=== PATIENT | male | born 1955 | race Caucasian/White ===

== ENCOUNTER 2017-09-22 07:03 | Day surgery (SDC) | payer BC ==
[2017-09-15 08:26] VITALS: BMI 31.6
[2017-09-22] MEDS ORDERED: Propofol 10 mg/ml Inj (20 ML) ONE ×2 (07:58→08:35)
[2017-09-22] MEDS ORDERED: Sodium Chloride 0.9% 1,000 ML IV SCH (08:15)
[2017-09-22 10:08] VITALS: BP 151/76; PULSE 56; RESP 15; TEMP 97; O2SAT 97
== END 2017-09-22 10:35 | disposition home or self-care (01) ==
LOC: ENDO 07:03
PROVIDERS: ATTEND Internal Medicine Gastroenterology
DX: Z12.11 Encounter for screening for malignant neoplasm of colon (principal); K64.0 First degree hemorrhoids; K59.00 Constipation, unspecified; Z86.69 Personal history of other diseases of the nervous system and sense organs
CPT/HCPCS: 45378; J2001; J2704; J7030